=== PATIENT | male | born 1965 | race Caucasian/White ===

== ENCOUNTER 2016-09-08 13:33 | Emergency (ER) | payer BC ==
[~2016-09-08] VITALS: Ht 177.8 cm; Wt 94.0 kg
[~2016-09-08 13:33] MED LIST: LEVAQUIN750 MG PO; THERMAZENE TP
[2016-09-08 13:42] VITALS: BP 171/98
[2016-09-08] MEDS ORDERED: MOTRIN600 MG PO (14:47)
[2016-09-08] MEDS ORDERED: VALIUM5 MG PO (14:47)
[2016-09-08] MEDS ORDERED: TRAMADOL HCL50 MG PO (14:47)
== END 2016-09-08 15:02 | disposition home or self-care (01) ==
LOC: EME 13:33
DX: M43.6 Torticollis (principal); E11.9 Type 2 diabetes mellitus without complications
CPT/HCPCS: 99281; 99283

== ENCOUNTER 2017-09-18 10:59 | Day surgery (SDC) | payer BC ==
[~2017-09-18] VITALS: Ht 177.8 cm; Wt 95.5 kg
[~2017-09-18 10:59] MED LIST changes: +MOTRIN600 MG PO; +TRAMADOL HCL50 MG PO; +VALIUM5 MG PO
[2017-09-18] MEDS ORDERED: CARVEDILOL3.125 MG PO (11:53)
[2017-09-18] MEDS ORDERED: VALSARTAN40 MG PO (11:53)
[2017-09-18] MEDS ORDERED: GLIPIZIDE-METF1 EAC2 PO (11:54)
[2017-09-18] MEDS ORDERED: ATORVASTATIN CA40 MG PO (11:54)
[2017-09-18] MEDS ORDERED: ASPIR 8181 M1 PO (11:55)
[2017-09-18 12:25] LABS: HEMATOCRIT 47.3 % (38.0-50.0); HEMOGLOBIN 15.5 G/DL (12.5-16.6); MCH 29.3 PG (29.0-34.0); MCHC 32.8 G/DL (30.0-36.0); MCV 89.4 FL (86-99); PLATELET COUNT 251 K/uL (156-360); RBC DIS.WIDTH-CV 12.9 % (11.8-14.6); RBC DIS.WIDTH-SD 42.6 % (39-53); RED BLOOD COUNT 5.29 M/uL (4.00-5.50); WHITE BLOOD COUNT 9.5 K/uL (4.1-10.2)
[2017-09-18 13:01] LABS: CHLORIDE 100 MEQ/L (99-109); CREATININE 0.9 MG/DL (0.6-1.3); GFR ESTIMATE (CALCULATED) > 59 mL/min/ (58.99-99999); GLUCOSE 152 mg/dL (70-99); POTASSIUM 4.5 MEQ/L (3.7-5.4); SODIUM 134 MEQ/L (136-147); UREA NITROGEN (BUN) 20 mg/dL (9-23)
[2017-09-18 17:21] VITALS: BP 132/74
[2017-09-18 20:00] VITALS: BP 145/67
[2017-09-18 20:15] VITALS: BP 145/67
[2017-09-18 23:13] VITALS: BP 134/69
[2017-09-18 23:18] VITALS: BP 134/69
[2017-09-19 04:34] VITALS: BP 159/82
[2017-09-19 05:03] LABS: BASOPHIL (%) 0.5 % (0-1); EOSINOPHIL (%) 1.5 % (0-5); EOSINOPHIL COUNT 0.1 K/uL (0-0.3); HEMATOCRIT 46.7 % (38.0-50.0); HEMOGLOBIN 15.1 G/DL (12.5-16.6); IMMATURE GRANULOCYTE (%) 0.1 % (0.0-0.7); LYMPHOCYTE COUNT 2.8 K/uL (1.0-2.8); MCH 29.2 PG (29.0-34.0); MCHC 32.3 G/DL (30.0-36.0); MCV 90.3 FL (86-99); MONOCYTE (%) 9.4 % (3-12); MONOCYTE COUNT 0.8 K/uL (0-0.8); NEUTROPHIL (%) 55.5 % (45-76); NEUTROPHIL COUNT 4.7 K/uL (1.8-6.4); PLATELET COUNT 212 K/uL (156-360); RBC DIS.WIDTH-SD 42.9 % (39-53); RED BLOOD COUNT 5.17 M/uL (4.00-5.50); WHITE BLOOD COUNT 8.4 K/uL (4.1-10.2)
[2017-09-19 05:36] LABS: CHLORIDE 104 MEQ/L (99-109); CREATININE 0.9 MG/DL (0.6-1.3); GFR ESTIMATE (CALCULATED) > 59 mL/min/ (58.99-99999); GLUCOSE 179 mg/dL (70-99); HDL CHOLESTEROL 24 MG/DL (Desirable>=40); LDL CHOLESTEROL 70 mg/dL (Desirable<100); NON-HDL CHOLESTEROL 91 mg/dL (Desirable<160); POTASSIUM 4.4 MEQ/L (3.7-5.4); SODIUM 138 MEQ/L (136-147); TOTAL CHOLESTEROL 115 mg/dL (Desirable<200); TRIGLYCERIDES 103 MG/DL (Normal: <150); UREA NITROGEN (BUN) 18 mg/dL (9-23)
[2017-09-19 07:04] VITALS: BP 177/85
[2017-09-19 09:56] LABS: HEMOGLOBIN A1c (GLYCOHEMOGLOB) 8.4 % (Below 5.7)
[2017-09-19 10:15] VITALS: BP 136/79
[2017-09-19] MEDS ORDERED: VALSARTAN40 MG PO (10:29)
[2017-09-19] MEDS ORDERED: NICOTINE PATCH1 EAC2 TD (10:29)
[2017-09-19] MEDS ORDERED: EFFIENT10 MG PO (10:29)
== END 2017-09-19 11:37 | disposition home or self-care (01) ==
LOC: CATH 10:59 → 4EAST 14:20 → ENRESERV 14:58 → ENPENDDIS 09-19 → CATH 09-19 09:00 → 4EAST 09-19 11:37
PROVIDERS: Internal Medicine Interventional Cardiology
DX: I25.10 Atherosclerotic heart disease of native coronary artery without angina pectoris (principal); I34.0 Nonrheumatic mitral (valve) insufficiency; I25.5 Ischemic cardiomyopathy; I10 Essential (primary) hypertension; Z72.0 Tobacco use; E11.9 Type 2 diabetes mellitus without complications; E78.5 Hyperlipidemia, unspecified; Z82.49 Family history of ischemic heart disease and other diseases of the circulatory system; Z83.3 Family history of diabetes mellitus; Z79.84 Long term (current) use of oral hypoglycemic drugs
CPT/HCPCS: 80048; 80061; 82948; 83036; 85025; 85027; 85347; 93005; C1725; C1769; C1874; C1887; G0378; J1644; J2250; J3010; J7030